=== PATIENT | female | born 2000 | race Caucasian/White ===

== ENCOUNTER 2023-01-06 08:43 | Emergency (ER) | payer OTHER ==
[2023-01-06 09:33] LABS: Hematocrit 47.1 % (36.0-47.0); Hemoglobin 16.1 g/dL (12.0-16.0); Mean Corpuscular HGB CONC 34.2 g/dL (32.0-36.0); Mean Corpuscular Hemoglobin 31.4 pg (27.0-31.0); Mean Corpuscular Volume 91.8 fl (78.0-98.0); Mean Platelet Volume 10.4 fL (7.4-10.4); Platelet Count 173 10x3/uL (130-400); RBC Distribution Width 12.6 % (11.5-14.5); Red Blood Cell (RBC) Count 5.13 mill/uL (4.20-5.40); White Blood Cell (WBC) Count 5.9 10x3/uL (4.8-10.8)
[2023-01-06 09:39] LABS: Delete Auto Diff?? YES; Manual Diff?? YES
[2023-01-06 09:57] LABS: BHCG - Serum Negative (NEGATIVE); Pregs Control Background? CLEAR/WHITE (CLR/WHITE); Pregs Control Bar Appear? YES (CONTROL BAR)
[2023-01-06 10:03] LABS: Band 18 % (5-11); CellaVision Operator ID LAB.GE; Large Platelets 3.9 % (0-5); Lymphocytes 16 % (21-51); Monocytes 5 % (0-10); Myelocyte 2 % (0-0); Neutrophil 37 % (42-75); Platelet Adequacy Comment Platelets Normal; Polychromasia SLIGHT = 2-3 cells HPF (0-2); Reactive Lymphocytes 23 % (0-10); Total Cell Count 102
[2023-01-06 10:08] LABS: Anion Gap 14 mmol/L (10-20); Carbon Dioxide 25 mmol/L (22-29); Chloride 102 mmol/L (98-107); Glucose 90 mg/dL (70-105); Potassium 4.1 mmol/L (3.5-5.1); Sodium 137 mmol/L (136-145)
[2023-01-06 10:09] LABS: Bilirubin, Total 0.4 mg/dL (0.2-1.2); Calcium 9.6 mg/dL (7.6-10.4); Protein, Total 8.1 g/dL (6.0-8.3)
[2023-01-06 10:10] LABS: Albumin 4.1 g/dL (3.5-5.0)
[2023-01-06 10:35] LABS: ALT (SGPT) 43 U/L (8-55); AST (SGOT) 39 U/L (5-34); Alkaline Phosphatase 41 U/L (40-110); BUN (Urea Nitrogen) 15 mg/dL (7.0-18.7); Calc. Creatinine Clearance 0 mL/min (70-130); Estimated GFR 101; Magnesium 1.9 mg/dL (1.6-2.6)
[2023-01-06 10:41] LABS: Bacteria/HPF None Seen HPF (None Seen); Bilirubin Negative (Negative); Blood, Urine Negative (Negative); CAUTI Indications for Culture Dysuria,urgency,freq; Clarity Clear (Clear); Glucose, Urine (Dipstick) Normal (Negative); Ketone, Urine Negative (Negative); Leukocyte Negative Leu/uL (Negative); Nitrite Negative (Negative); Protein, Urine (Dipstick) Negative (Neg-Trace); RBC/HPF 0-3 HPF (0-3); Specific Gravity, Urine 1.008 (1.002-1.036); Squamous Epithelial 0-3 HPF (0-3); Urobilinogen Normal mg/dL (Less than 2); WBC/HPF 0-3 HPF (0-3); pH, Urine 6.5 (5.0-9.0)
[2023-01-06 10:42] LABS: Urine Culture Reflex No No
== END 2023-01-06 11:13 | disposition home or self-care (01) ==
LOC: ERS 08:43
DX: R42 Dizziness and giddiness (principal)
CPT/HCPCS: 80053; 81001; 83735; 84703; 85025; 93005

== ENCOUNTER 2023-01-12 10:44 | Emergency (ER) | payer OTHER ==
[~2023-01-12 10:44] MED LIST: Iopamidol-370 76% 500 ML MDV (1 ML CHARGE) ONE
[2023-01-12 13:02] LABS: SARS-CoV-2 NAA Rapid Test DETECTED (NotDetected)
[2023-01-12] MEDS ORDERED: Dexamethasone 10 MG/ML VIAL ONE (14:00)
[2023-01-12] MEDS ORDERED: Ketorolac Tromethamine 30 MG/ML VIAL ONE (14:00)
[2023-01-12 14:17] LABS: Mean Corpuscular Hemoglobin 31.1 pg (27.0-31.0); Mean Corpuscular Volume 97.1 fl (78.0-98.0); Mean Platelet Volume 10.8 fL (7.4-10.4); Platelet Count 180 10x3/uL (130-400); RBC Distribution Width 12.8 % (11.5-14.5); Red Blood Cell (RBC) Count 5.15 mill/uL (4.20-5.40); White Blood Cell (WBC) Count 10.5 10x3/uL (4.8-10.8)
[2023-01-12 14:20] LABS: Delete Auto Diff?? YES; Manual Diff?? YES
[2023-01-12 14:24] LABS: MONO NEGATIVE CONTROL ZONE White (Negative) (White); MONO POSITIVE CONTROL Pink Line (Positive) (PINK/RED); Mononucleosis POSITIVE (NEGATIVE)
[2023-01-12 14:36] LABS: Bacteria/HPF None Seen HPF (None Seen); Bilirubin Negative (Negative); Blood, Urine Negative (Negative); CAUTI Indications for Culture Pelvic or flank pain; Clarity Clear (Clear); Glucose, Urine (Dipstick) Normal (Negative); Ketone, Urine 80 mg/dL (Negative); Leukocyte Negative Leu/uL (Negative); Nitrite Negative (Negative); Protein, Urine (Dipstick) Negative (Neg-Trace); RBC/HPF 0-3 HPF (0-3); Specific Gravity, Urine 1.017 (1.002-1.036); Squamous Epithelial 0-3 HPF (0-3); Urobilinogen Normal mg/dL (Less than 2); WBC/HPF 0-3 HPF (0-3); pH, Urine 5.5 (5.0-9.0)
[2023-01-12 14:37] LABS: Pregnancy Test - Urine (BHCG) Negative (Negative); Pregu Control Background? CLEAR/WHITE (CLR/WHITE); Pregu Control Bar Appear? YES (CONTROL BAR); Specific Gravity 1.017 (1.002-1.036); Urine Culture Reflex No No
[2023-01-12 14:39] LABS: ALT (SGPT) 116 U/L (8-55); AST (SGOT) 62 U/L (5-34); Albumin 4.1 g/dL (3.5-5.0); Alkaline Phosphatase 88 U/L (40-110); Anion Gap 16 mmol/L (10-20); BUN (Urea Nitrogen) 12 mg/dL (7.0-18.7); Bilirubin, Total 0.5 mg/dL (0.2-1.2); Calc. Creatinine Clearance 0 mL/min (70-130); Calcium 9.8 mg/dL (7.8-10.44); Carbon Dioxide 24 mmol/L (22-29); Chloride 101 mmol/L (98-107); Estimated GFR 102; Glucose 79 mg/dL (70-105); Potassium 4.6 mmol/L (3.5-5.1); Protein, Total 8.1 g/dL (6.0-8.3); Sodium 136 mmol/L (136-145)
[2023-01-12 14:40] LABS: Band 7 % (5-11); Burr Cells SLIGHT = 2-5 cells HPF (0-1); CellaVision Operator ID LAB.KB; Lymphocytes 17 % (21-51); Monocytes 4 % (0-10); Neutrophil 60 % (42-75); Platelet Adequacy Comment Platelets Normal; Polychromasia SLIGHT = 2-3 cells HPF (0-2); Reactive Lymphocytes 12 % (0-10); Smudge Cells 11.1 %; Total Cell Count 99
[2023-01-12 15:36] LABS: Magnesium 1.8 mg/dL (1.6-2.6)
== END 2023-01-12 16:42 | disposition home or self-care (01) ==
LOC: ERS 10:44
DX: U07.1 COVID-19 (principal); B27.90 Infectious mononucleosis, unspecified without complication; R74.01 Elevation of levels of liver transaminase levels
CPT/HCPCS: 36415; 71045; 71275; 80053; 81001; 81025; 83735; 84443; 85025; 85379; 86308; 87081; 87430; 96374; 96375; J1100; J1885; Q9967